=== PATIENT | female | born 1935 | race Asian ===

== ENCOUNTER 2019-06-10 08:42 | Emergency (ER) | payer OTHER ==
[2019-06-10 08:49] VITALS: BP 163/77; PULSE 86; TEMP 97.7; BMI 31.7
[2019-06-10] MEDS ORDERED: ACETAMINOPHEN 325 MG TABLET (FP) PO ONE (09:37)
[2019-06-10] MEDS ORDERED: predniSONE 20 MG TABLET (UD) PO ONE (09:38)
[2019-06-10] MEDS ORDERED: LIDOCAINE 5% TOPICAL PATCH TP ONE (09:38)
--- NOTE | 2019-06-10 09:38 | PDOC ---
History of Present Illness - General Chief Complaint: Injury Stated Complaint: SLIP AND FALL Time Seen by Provider: 06/10/19 08:59 History Source: Patient Exam Limitations: No Limitations Past History - Travel Traveled outside of the country in the last 30 days: No Close contact w/someone who was outside of country & ill: No - Past Medical History Allergies/Adverse Reactions: Allergies Allergy/AdvReac Type Severity Reaction Status Date / Time amiodarone Allergy Verified 06/10/19 08:49 Home Medications: Ambulatory Orders Carbidopa/Levodopa [Sinemet 10/100 -] 1 each PO TID 06/15/15 Dabigatran Etexilate Mesylate [Pradaxa -] 150 mg PO BID 06/15/15 Digoxin [Lanoxin -] 0.25 mg PO DAILY 06/15/15 Lisinopril 10 mg PO DAILY 06/15/15 Metoprolol Tartrate [Lopressor -] 50 mg PO BID 06/15/15 Tramadol HCl 50 mg PO BID #6 tablet MDD 2 03/12/18 Tramadol HCl 50 mg PO BID #7 tablet MDD 100mg 03/12/18 Acetaminophen [Tylenol] 650 mg PO Q4H #45 tablet 06/10/19 traMADol HCL [Ultram -] 50 mg PO BID #10 tablet MDD 2 06/10/19 Anemia: No Asthma: No Cancer: Yes (R BREAST) Cardiac Disorders: Yes (A FIB) CVA: No COPD: No CHF: No Dementia: No Diabetes: No GI Disorders: No Disorders: No HTN: Yes Hypercholesterolemia: No Liver Disease: No Seizures: No Thyroid Disease: Yes (NODULE) - Surgical History Abdominal Surgery: No Appendectomy: No Cardiac Surgery: No Cholecystectomy: No Lung Surgery: No Neurologic Surgery: No Orthopedic Surgery: No - Psycho Social/Smoking Cessation Hx Smoking History: Never smoked Have you smoked in the past 12 months: No Hx Alcohol Use: No Drug/Substance Use Hx: No Substance Use Type: None Hx Substance Use Treatment: No Review of Systems - Review of Systems Able to Perform ROS?: Yes Comments:: 06/10/19 10:16 CONSTITUTIONAL: Absent: fever, chills, diaphoresis, generalized weakness, malaise, loss of appetite HEENT: Absent: rhinorrhea, nasal congestion, throat pain, throat swelling, difficulty swallowing, mouth swelling, ear pain, eye pain, visual Changes CARDIOVASCULAR: Absent: chest pain, loss of consciousness, palpitations, irregular heart rate, peripheral edema MUSCULOSKELETAL: Present: Low back pain absent: myalgia, arthralgia, joint swelling SKIN: Absent: rash, itching, pallor NEUROLOGIC: Absent: headache, focal weakness or paresthesias, dizziness, unsteady gait, seizure, mental status changes, bladder or bowel incontinence PSYCHIATRIC: Absent: anxiety, depression, suicidal or homicidal ideation, hallucinations. Is the patient limited Maldivian proficient: No *Physical Exam - Vital Signs Last Vital Signs Temp Pulse Resp BP Pulse Ox 97.7 F 86 83 H 163/77 96 06/10/19 08:45 06/10/19 08:45 06/10/19 08:45 06/10/19 08:45 06/10/19 08:45 - Physical Exam 06/10/19 10:17 GENERAL: Well developed, well nourished. Awake and alert. No acute distress. HEENT: Normocephalic, atraumatic. PERRLA, EOMI. No conjunctival pallor. Sclera are non- icteric. Moist mucous membranes. Oropharynx is clear. NECK: Supple. Full ROM. No JVD. Carotid pulses 2+ and symmetric, without bruits. No thyromegaly. No lymphadenopathy. MUSCULOSKELETAL Midline tenderness to the coccyx, S1 region. Associated paraspinal tenderness bilaterally L3-S1. Normal range of motion. No CVA tenderness. EXTREMITIES: No cyanosis. No clubbing. No edema. No calf tenderness. SKIN: Warm and dry. Normal capillary refill. No rashes. No jaundice. NEUROLOGICAL: Alert, awake, appropriate. Cranial nerves 2-12 intact. No deficits to light touch and temperature in face, upper extremities and lower extremities. No motor deficits in the in face, upper extremities and lower extremities. Normoreflexic in the upper and lower extremities. Normal speech. Toes are down- going bilaterally. Gait is normal without ataxia. PSYCHIATRIC: Cooperative. Good eye contact. Appropriate mood and affect. Medical Decision Making - Medical Decision Making 06/10/19 10:18 The patient is an 83-year-old female, past medical history of A. fib, on Pradaxa , HTN, breast CA, presents the ER today with low back pain. She states that she fell on an escalator on 06/01/2019. She states that she landed on her butt and now she has a lot of pain in her Coccyx. She states it hurts to sit. She feels better when she lays flat. She did not hit her head or lose consciousness when she fell. Denies dizziness, lightheadedness, weakness to the extremities, saddle anesthesia, bladder or bowel incontinence and headache. A/P: Low back pain On exam patient with midline tenderness over the coccyx. Patient also with bilateral paraspinous muscle tenderness L3-S1. Strength is intact of the lower extremities 5 out of 5 bilaterally. No sensory deficits. Reflexes intact 2+ at the patella. No bruising noted. No CVA tenderness. Gait stable; pt ambulatory in the ED X-ray reveals a fracture of the coccyx. We will treat with tramadol, Tylenol and have the patient follow-up with orthopedics. A referral has been provided. Will discharge home with return precautions and orthopedic follow-up. I discussed the physical exam findings, ancillary test results and final diagnoses with the patient. I answered all of the patient's questions. The patient was satisfied with the care received and felt comfortable with the discharge plan and treatment plan. The Patient agrees to follow up with the primary care physician/specialist within 24-72 hours. Return precautions were given. Discharge - Discharge Information Problems reviewed: Yes Clinical Impression/Diagnosis: Fracture of coccyx Qualifiers: Encounter type: initial encounter Fracture type: closed Qualified Code(s): S32.2XXA - Fracture of coccyx, initial encounter for closed fracture Condition: Stable Disposition: HOME - Admission No - Additional Discharge Information Prescriptions: Acetaminophen [Tylenol] 650 mg PO Q4H #45 tablet traMADol HCL [Ultram -] 50 mg PO BID #10 tablet MDD 2 - Follow up/Referral Referrals: Misbah Bledsoe DO [Staff Physician] - - Patient Discharge Instructions Patient Printed Discharge Instructions: DI for Coccyx Fracture Additional Instructions: You broke your tailbone. Please take Tylenol 650 mg every 6 hours for pain. You may take tramadol as needed for breakthrough pain. Do not drink alcohol or drive after taking this medication as it may make you drowsy. Please buy a doughnut pillow at the pharmacy to sit on to help relieve your pain. Please follow-up with orthopedics this week. A referral has been provided to you. Please follow-up with your primary care doctor as well. Return to the ER for worsening pain, loss of bladder or bowel function, numbness and tingling to the area or if you have any changes in your symptoms. - Post Discharge Activity
[2019-06-10] MEDS ORDERED: LIDOCAINE 5% TOPICAL PATCH ONE (09:41)
[2019-06-10] MEDS ORDERED: ACETAMINOPHEN 325 MG TABLET (FP) ONE (09:41)
[2019-06-10] MEDS ORDERED: predniSONE 20 MG TABLET (UD) ONE (09:41)
== END 2019-06-10 10:20 | disposition home or self-care (01) ==
LOC: JERFT 08:42
DX: S32.2XXA Fracture of coccyx, initial encounter for closed fracture (principal); W10.0XXA Fall (on)(from) escalator, initial encounter; Y93.89 Activity, other specified; Y92.29 Other specified public building as the place of occurrence of the external cause; Y99.8 Other external cause status; I10 Essential (primary) hypertension; I48.91 Unspecified atrial fibrillation; Z79.02 Long term (current) use of antithrombotics/antiplatelets; Z85.3 Personal history of malignant neoplasm of breast; E04.1 Nontoxic single thyroid nodule; Z88.8 Allergy status to other drugs, medicaments and biological substances
CPT/HCPCS: 72100-TC-FY; 99282-25

== ENCOUNTER 2021-05-19 13:00 | Observation (INO) | payer OTHER ==
[2021-05-19 14:12] LABS: BASO % 0.5 % (0-2.0); EOS % 1.6 % (0-4.5); HEMATOCRIT 42.5 % (32.4-45.2); HEMOGLOBIN 14.3 GM/dL (10.7-15.3); LYMPH % 21.6 % (8-40); MCH 31.9 pg (25.7-33.7); MCHC 33.7 g/dl (32.0-36.0); MEAN CELL VOLUME 94.8 fl (80-96); MEAN PLT VOLUME 8.5 fl (7.5-11.1); MONO % 7.7 % (3.8-10.2); NEUT % 68.6 % (42.8-82.8); PLATELET COUNT 177 10^3/uL (134-434); RBC 4.48 M/mm3 (3.60-5.2); RDW 13.6 % (11.6-15.6); WHITE BLOOD COUNT 7.4 K/mm3 (4.0-10.0)
[2021-05-19 14:20] LABS: INR 1.53 (0.83-1.09); PROTHROMBIN TIME (PATIENT) 17.2 SEC (9.7-13.0)
[2021-05-19 14:23] LABS: ACTIVATED PTT 32.4 SECONDS (25.2-36.5)
[2021-05-19 14:33] LABS: EPI CELLS 19 /uL (0-25.1); HYALINE CASTS 16 /uL (0-3.1); PH,URINE 5.5 (5.0-8.0); URINE APPEARANCE Error; URINE BACTERIA 8 /uL (0-1359); URINE BILIRUBIN 1+ (NEGATIVE); URINE COLOR DK YELLOW; URINE GLUCOSE (UA) NEGATIVE (NEGATIVE); URINE KETONE TRACE (NEGATIVE); URINE LEUK ESTERASE NEGATIVE (NEGATIVE); URINE NITRITE NEGATIVE (NEGATIVE); URINE PROTEIN 1+ (NEGATIVE); URINE RBC 16 /uL (0-23.9); URINE WBC 9 /uL (0-25.8)
[2021-05-19 14:40] LABS: CHLORIDE 96 mmol/L (98-107); SODIUM 133 mmol/L (136-145)
[2021-05-19 14:41] LABS: CALCIUM 8.6 mg/dL (8.5-10.1)
[2021-05-19 14:42] LABS: ALBUMIN 3.4 g/dl (3.4-5.0); ANION GAP 10 MMOL/L (8-16); CO2 26 mmol/L (21-32); GLUCOSE,RANDOM 104 mg/dL (74-106); MAGNESIUM 2.3 mg/dL (1.8-2.4)
[2021-05-19 14:45] LABS: SGOT/AST 35 U/L (15-37); SGPT/ALT 11 U/L (13-61)
[2021-05-19 14:47] LABS: BILIRUBIN,TOTAL 1.1 mg/dL (0.2-1); TOT PROT 7.2 g/dl (6.4-8.2)
[2021-05-19 14:48] LABS: ALK PHOS 84 U/L (45-117)
[2021-05-19 15:14] LABS: LACTIC ACID 2.1 mmol/L (0.4-2.0)
[2021-05-19] MEDS ORDERED: LACTATED RINGERS SOLUTION 1,000 ML/1,000 ML INFUS.BAG IV SCH ×2 (15:30)
[2021-05-19] MEDS ORDERED: METOPROLOL TARTRATE 50 MG TABLET (FP) ONE (22:54)
[2021-05-19] MEDS: METOPROLOL TARTRATE 50 MG TABLET (FP) PO SCH (22:56)
[2021-05-20] MEDS: CARBIDOPA/LEVODOPA 10/100 TABLET (FP) PO SCH ×4 (00:42→22:39)
[2021-05-20 07:53] LABS: BASO % 0.7 % (0-2.0); HEMATOCRIT 40.3 % (32.4-45.2); HEMOGLOBIN 13.6 GM/dL (10.7-15.3); LYMPH % 27.1 % (8-40); MCH 31.6 pg (25.7-33.7); MCHC 33.7 g/dl (32.0-36.0); MEAN CELL VOLUME 93.7 fl (80-96); MEAN PLT VOLUME 8.4 fl (7.5-11.1); MONO % 9.6 % (3.8-10.2); NEUT % 59.6 % (42.8-82.8); PLATELET COUNT 170 10^3/uL (134-434); RDW 13.9 % (11.6-15.6); WHITE BLOOD COUNT 8.5 K/mm3 (4.0-10.0)
[2021-05-20 08:15] LABS: CALCIUM 9.1 mg/dL (8.5-10.1)
[2021-05-20 08:16] LABS: ALBUMIN 3.4 g/dl (3.4-5.0); BLOOD UREA NITROGEN 19.5 mg/dL (7-18); MAGNESIUM 2.3 mg/dL (1.8-2.4)
[2021-05-20 08:17] LABS: PHOSPHOROUS 3.6 mg/dL (2.5-4.9)
[2021-05-20 08:19] LABS: BILIRUBIN,TOTAL 0.6 mg/dL (0.2-1); CREATININE 0.8 mg/dL (0.55-1.3); TOT PROT 6.9 g/dl (6.4-8.2)
[2021-05-20] MEDS ORDERED: DIGOXIN 0.125 MG TABLET ONE (09:39)
[2021-05-20] MEDS ORDERED: METOPROLOL TARTRATE 50 MG TABLET (FP) ONE ×2 (09:39→21:27)
[2021-05-20] MEDS: LISINOPRIL 10 MG TABLET PO SCH (11:10)
[2021-05-20] MEDS: METOPROLOL TARTRATE 50 MG TABLET (FP) PO SCH ×2 (11:10→22:39)
[2021-05-20] MEDS: DIGOXIN 0.125 MG TABLET PO SCH (11:10)
[2021-05-20] MEDS ORDERED: ATORVASTATIN CA 10 MG TABLET (FP) ONE (14:46)
[2021-05-20] MEDS ORDERED: LEVOTHYROXINE NA 25 MCG TABLET (FP) ONE (14:46)
[2021-05-20] MEDS: LEVOTHYROXINE NA 50 MCG TABLET (FP) PO SCH (14:53)
[2021-05-20] MEDS: ATORVASTATIN CA 10 MG TABLET (FP) PO SCH (14:53)
[2021-05-20] MEDS ORDERED: PT OWN MED DRAWER 7, Y5N ONE (18:44)
[2021-05-20] MEDS ORDERED: APIXABAN 5 MG TABLET ONE (21:27)
[2021-05-20] MEDS: MOMETASONE FUROATE 220 MCG/IH INHALER IH SCH (22:38)
[2021-05-20] MEDS: APIXABAN 5 MG TABLET PO SCH (22:39)
[2021-05-21 00:38] VITALS: BMI 30.7
[2021-05-21] MEDS: CARBIDOPA/LEVODOPA 10/100 TABLET (FP) PO SCH ×3 (06:43→21:46)
[2021-05-21] MEDS: LEVOTHYROXINE NA 50 MCG TABLET (FP) PO SCH (06:43)
[2021-05-21] MEDS: APIXABAN 5 MG TABLET PO SCH ×2 (09:30→21:45)
[2021-05-21] MEDS: DIGOXIN 0.125 MG TABLET PO SCH (09:31)
[2021-05-21] MEDS: METOPROLOL TARTRATE 50 MG TABLET (FP) PO SCH ×2 (09:31→21:45)
[2021-05-21] MEDS: ATORVASTATIN CA 10 MG TABLET (FP) PO SCH (09:31)
[2021-05-21] MEDS: LISINOPRIL 10 MG TABLET PO SCH (09:31)
[2021-05-21] MEDS ORDERED: FLU VACC QS2021-22(6MOS UP)/PF 60 MCG/0.5 ML SYRINGE IM ONE (10:00)
[2021-05-21] MEDS ORDERED: PT OWN MED DRAWER 7, Y5N ONE ×2 (13:53→21:51)
[2021-05-21] MEDS: MOMETASONE FUROATE 220 MCG/IH INHALER IH SCH (21:45)
[2021-05-21] MEDS ORDERED: FAMOTIDINE 20 MG TABLET PO ONE (21:49)
[2021-05-22] MEDS: LEVOTHYROXINE NA 50 MCG TABLET (FP) PO SCH (06:24)
[2021-05-22] MEDS: CARBIDOPA/LEVODOPA 10/100 TABLET (FP) PO SCH ×2 (06:24→14:25)
[2021-05-22 07:32] LABS: HEMATOCRIT 41.5 % (32.4-45.2); HEMOGLOBIN 14.1 GM/dL (10.7-15.3); MCH 32.1 pg (25.7-33.7); MCHC 34.1 g/dl (32.0-36.0); MEAN CELL VOLUME 94.2 fl (80-96); MEAN PLT VOLUME 8.4 fl (7.5-11.1); PLATELET COUNT 167 10^3/uL (134-434); RBC 4.41 M/mm3 (3.60-5.2); RDW 13.8 % (11.6-15.6); WHITE BLOOD COUNT 7.3 K/mm3 (4.0-10.0)
[2021-05-22 07:56] LABS: BLOOD UREA NITROGEN 15.2 mg/dL (7-18); MAGNESIUM 1.9 mg/dL (1.8-2.4)
[2021-05-22 07:57] LABS: CALCIUM 8.6 mg/dL (8.5-10.1)
[2021-05-22 07:59] LABS: CREATININE 0.7 mg/dL (0.55-1.3); PHOSPHOROUS 3.4 mg/dL (2.5-4.9)
[2021-05-22 09:28] VITALS: PULSE 87
[2021-05-22] MEDS: DIGOXIN 0.125 MG TABLET PO SCH (09:28)
[2021-05-22] MEDS: METOPROLOL TARTRATE 50 MG TABLET (FP) PO SCH (09:28)
[2021-05-22] MEDS: LISINOPRIL 10 MG TABLET PO SCH (09:28)
[2021-05-22] MEDS: APIXABAN 5 MG TABLET PO SCH (09:28)
[2021-05-22] MEDS: ATORVASTATIN CA 10 MG TABLET (FP) PO SCH (09:28)
[2021-05-22 11:21] VITALS: BP 136/70; TEMP 98.4
== END 2021-05-22 18:00 | disposition home or self-care (01) ==
LOC: JER 13:00 → JERBED 13:40 → UNDOADMOB 13:40 → OBSVTOIN 18:10 → INTOOBSV 18:10 → JERBED 05-20 16:36 → J4W 05-20 23:39
PROVIDERS: ADMIT Internal Medicine; ATTEND Internal Medicine
PROC: 3E0234Z Introduction of Serum, Toxoid and Vaccine into Muscle, Percutaneous Approach (ICD-10-PCS; principal; 2021-05-20)
PROC: 3E0337Z Introduction of Electrolytic and Water Balance Substance into Peripheral Vein, Percutaneous Approach (ICD-10-PCS; 2021-05-20)
DX: R55 Syncope and collapse (principal); I48.91 Unspecified atrial fibrillation; F03.90 Unspecified dementia, unspecified severity, without behavioral disturbance, psychotic disturbance, mood disturbance, and anxiety; E66.8 Other obesity; Z68.30 Body mass index [BMI] 30.0-30.9, adult; E87.1 Hypo-osmolality and hyponatremia; I10 Essential (primary) hypertension; Z85.3 Personal history of malignant neoplasm of breast; Z88.8 Allergy status to other drugs, medicaments and biological substances
CPT/HCPCS: 36415; 70450-TC; 71045-TC-FY; 72125-TC; 80048; 80053; 80162; 81003; 82550; 82962; 83605; 83735; 84100; 84484; 85025; 85027; 85610; 85730; 87086; 90686; 93005; 93010; 93306-TC; 96360; 96372; 97116-GP; 97162-GP; 99285-25; C9803; G0378; U0003; U0005

== ENCOUNTER 2021-05-27 00:17 | Observation (INO) | payer OTHER ==
[2021-05-27 00:32] VITALS: BMI 26.5
[2021-05-27 03:27] LABS: BASO % 0.6 % (0-2.0); HEMOGLOBIN 13.9 GM/dL (10.7-15.3); LYMPH % 27.1 % (8-40); MCH 31.5 pg (25.7-33.7); MCHC 33.9 g/dl (32.0-36.0); MEAN CELL VOLUME 92.9 fl (80-96); MEAN PLT VOLUME 7.9 fl (7.5-11.1); MONO % 8.5 % (3.8-10.2); NEUT % 60.8 % (42.8-82.8); PLATELET COUNT 169 10^3/uL (134-434); RBC 4.41 M/mm3 (3.60-5.2); RDW 13.3 % (11.6-15.6); WHITE BLOOD COUNT 8.9 K/mm3 (4.0-10.0)
[2021-05-27 03:45] LABS: CHLORIDE 93 mmol/L (98-107)
[2021-05-27 03:47] LABS: CALCIUM 8.8 mg/dL (8.5-10.1)
[2021-05-27 03:48] LABS: ALBUMIN 3.8 g/dl (3.4-5.0); BLOOD UREA NITROGEN 16.4 mg/dL (7-18); CO2 27 mmol/L (21-32); GLUCOSE,RANDOM 106 mg/dL (74-106)
[2021-05-27 03:51] LABS: CREATININE 0.6 mg/dL (0.55-1.3); SGOT/AST 25 U/L (15-37); SGPT/ALT 19 U/L (13-61)
[2021-05-27 03:52] LABS: BILIRUBIN,TOTAL 0.7 mg/dL (0.2-1)
[2021-05-27 03:53] LABS: TOT PROT 7.4 g/dl (6.4-8.2)
[2021-05-27 03:54] LABS: ALK PHOS 103 U/L (45-117)
[2021-05-27 03:57] LABS: ANION GAP 10 MMOL/L (8-16); SODIUM 129 mmol/L (136-145)
[2021-05-27] MEDS ORDERED: SODIUM CHLORIDE 1,000 ML IV SCH (04:00)
[2021-05-27] MEDS ORDERED: APIXABAN 5 MG TABLET ONE (08:45)
[2021-05-27] MEDS ORDERED: DIGOXIN 0.25 MG TABLET ONE (08:45)
[2021-05-27] MEDS ORDERED: LISINOPRIL 5 MG TABLET ONE (08:46)
[2021-05-27] MEDS ORDERED: METOPROLOL TARTRATE 50 MG TABLET (FP) ONE (08:46)
[2021-05-27] MEDS ORDERED: LEVOTHYROXINE NA 25 MCG TABLET (FP) ONE (08:46)
[2021-05-27] MEDS ORDERED: LISINOPRIL 10 MG TABLET PO SCH (10:00)
[2021-05-27] MEDS ORDERED: APIXABAN 5 MG TABLET PO SCH (10:00)
[2021-05-27] MEDS ORDERED: ATORVASTATIN CA 10 MG TABLET (FP) PO SCH (10:00)
[2021-05-27] MEDS ORDERED: DIGOXIN 0.25 MG TABLET PO SCH (10:00)
[2021-05-27] MEDS ORDERED: METOPROLOL TARTRATE 50 MG TABLET (FP) PO SCH (10:00)
[2021-05-27] MEDS ORDERED: LEVOTHYROXINE NA 50 MCG TABLET (FP) PO SCH (10:00)
[2021-05-27 11:36] LABS: CALCIUM 9.5 mg/dL (8.5-10.1)
[2021-05-27 11:37] LABS: BLOOD UREA NITROGEN 14.5 mg/dL (7-18)
[2021-05-27 11:40] LABS: CREATININE 0.7 mg/dL (0.55-1.3)
[2021-05-27] MEDS ORDERED: FAMOTIDINE 20 MG TABLET PO ONE (13:30)
[2021-05-27] MEDS ORDERED: FAMOTIDINE 20 MG TABLET ONE (13:38)
[2021-05-27] MEDS ORDERED: CARBIDOPA/LEVODOPA 10/100 TABLET (FP) PO SCH (14:00)
[2021-05-27 15:22] VITALS: BP 125/74; PULSE 66; TEMP 98.9
[2021-05-28] MEDS ORDERED: LEVOTHYROXINE NA 50 MCG TABLET (FP) PO SCH (07:15)
== END 2021-05-27 17:30 | disposition home or self-care (01) ==
LOC: JER 00:17 → JERBED 03:40
PROVIDERS: ADMIT Internal Medicine; ATTEND Internal Medicine
DX: E87.1 Hypo-osmolality and hyponatremia (principal); R07.89 Other chest pain; I10 Essential (primary) hypertension; I48.21 Permanent atrial fibrillation; J45.909 Unspecified asthma, uncomplicated; F03.90 Unspecified dementia, unspecified severity, without behavioral disturbance, psychotic disturbance, mood disturbance, and anxiety; Z79.01 Long term (current) use of anticoagulants; Z88.8 Allergy status to other drugs, medicaments and biological substances; Z85.3 Personal history of malignant neoplasm of breast; Z90.11 Acquired absence of right breast and nipple
CPT/HCPCS: 36415; 71045-TC-FY; 80048; 80053; 80162; 82550; 83930; 83935; 84443; 84484; 85025; 93005; 93010; 99285-25; C9803; G0378; U0003; U0005

== ENCOUNTER 2021-12-29 11:41 | Observation (INO) | payer OTHER ==
[2021-12-29] MEDS ORDERED: ACETAMINOPHEN 1000 MG/100 ML BAG IVPB ONE ×2 (13:51→14:04)
[2021-12-29] MEDS ORDERED: ACETAMINOPHEN INJECTION 100 ML IVPB ONE (14:12)
[2021-12-29 14:22] LABS: BASO % 0.7 % (0-2.0); EOS % 1.9 % (0-4.5); HEMATOCRIT 43.1 % (32.4-45.2); HEMOGLOBIN 14.4 GM/dL (10.7-15.3); LYMPH % 21.6 % (8-40); MCH 30.8 pg (25.7-33.7); MCHC 33.4 g/dl (32.0-36.0); MEAN CELL VOLUME 92.2 fl (80-96); MEAN PLT VOLUME 7.5 fl (7.5-11.1); MONO % 8.1 % (3.8-10.2); NEUT % 67.7 % (42.8-82.8); PLATELET COUNT 228 10^3/uL (134-434); RBC 4.67 M/mm3 (3.60-5.2); RDW 13.7 % (11.6-15.6); WHITE BLOOD COUNT 8.1 K/mm3 (4.0-10.0)
[2021-12-29 14:26] LABS: URINE APPEARANCE CLEAR; URINE BILIRUBIN NEGATIVE (NEGATIVE); URINE COLOR YELLOW; URINE GLUCOSE (UA) NEGATIVE (NEGATIVE); URINE KETONE NEGATIVE (NEGATIVE); URINE LEUK ESTERASE NEGATIVE (NEGATIVE); URINE NITRITE NEGATIVE (NEGATIVE); URINE PROTEIN NEGATIVE (NEGATIVE); URINE UROBILINOGEN 0.2 mg/dL (0.2-1.0)
[2021-12-29 14:44] LABS: INR 1.31 (0.83-1.09); PROTHROMBIN TIME (PATIENT) 15.1 SEC (9.7-13.0)
[2021-12-29 14:45] LABS: ALBUMIN 3.9 g/dl (3.4-5.0); BLOOD UREA NITROGEN 13.9 mg/dL (7-18); CALCIUM 9.4 mg/dL (8.5-10.1)
[2021-12-29 14:48] LABS: CREATININE 0.9 mg/dL (0.55-1.3)
[2021-12-29 14:50] LABS: BILIRUBIN,TOTAL 0.7 mg/dL (0.2-1); TOT PROT 8.6 g/dl (6.4-8.2)
[2021-12-29 22:34] VITALS: BMI 28.1
[2021-12-29] MEDS ORDERED: ACETAMINOPHEN 325 MG TABLET (FP) PO PRN (23:02)
[2021-12-29] MEDS ORDERED: ALBUTEROL SO4 HFA INHALER IH PRN (23:17)
[2021-12-30] MEDS: MOMETASONE FUROATE 110 MCG/IH INHALER IH SCH ×3 (06:20→22:28)
[2021-12-30] MEDS: INSULIN SLIDING SCALE (NOVOLOG) 1 VIAL SQ SCH ×4 (06:24→22:27)
[2021-12-30] MEDS: METOPROLOL TARTRATE 50 MG TABLET (FP) PO SCH ×3 (06:28→21:54)
[2021-12-30] MEDS: LEVOTHYROXINE NA 50 MCG TABLET (FP) PO SCH (06:28)
[2021-12-30] MEDS: CARBIDOPA/LEVODOPA 10/100 TABLET (FP) PO SCH ×3 (07:20→21:55)
[2021-12-30 07:29] LABS: BASO % 0.5 % (0-2.0); HEMATOCRIT 41.3 % (32.4-45.2); HEMOGLOBIN 13.6 GM/dL (10.7-15.3); LYMPH % 27.6 % (8-40); MCH 30.6 pg (25.7-33.7); MCHC 32.9 g/dl (32.0-36.0); MEAN CELL VOLUME 93.1 fl (80-96); MEAN PLT VOLUME 8.4 fl (7.5-11.1); MONO % 9.4 % (3.8-10.2); NEUT % 59.5 % (42.8-82.8); PLATELET COUNT 222 10^3/uL (134-434); RBC 4.44 M/mm3 (3.60-5.2); RDW 13.6 % (11.6-15.6); WHITE BLOOD COUNT 7.6 K/mm3 (4.0-10.0)
[2021-12-30 07:58] LABS: ALBUMIN 3.4 g/dl (3.4-5.0); CALCIUM 8.7 mg/dL (8.5-10.1)
[2021-12-30 07:59] LABS: BLOOD UREA NITROGEN 14.3 mg/dL (7-18)
[2021-12-30 08:02] LABS: CREATININE 0.7 mg/dL (0.55-1.3)
[2021-12-30 08:04] LABS: BILIRUBIN,TOTAL 1.1 mg/dL (0.2-1)
[2021-12-30] MEDS: DIGOXIN 0.125 MG TABLET PO SCH (11:05)
[2021-12-30] MEDS: LISINOPRIL 10 MG TABLET PO SCH (11:05)
[2021-12-30] MEDS: APIXABAN 5 MG TABLET PO SCH ×2 (11:05→21:52)
[2021-12-30] MEDS: ATORVASTATIN CA 10 MG TABLET (FP) PO SCH (21:54)
[2021-12-31] MEDS: INSULIN SLIDING SCALE (NOVOLOG) 1 VIAL SQ SCH ×4 (06:19→21:45)
[2021-12-31] MEDS: CARBIDOPA/LEVODOPA 10/100 TABLET (FP) PO SCH ×3 (06:19→21:30)
[2021-12-31] MEDS: LEVOTHYROXINE NA 50 MCG TABLET (FP) PO SCH (06:24)
[2021-12-31] MEDS: DIGOXIN 0.125 MG TABLET PO SCH (09:31)
[2021-12-31] MEDS: APIXABAN 5 MG TABLET PO SCH ×2 (09:31→21:38)
[2021-12-31] MEDS: METOPROLOL TARTRATE 50 MG TABLET (FP) PO SCH ×2 (09:32→21:31)
[2021-12-31] MEDS: LISINOPRIL 10 MG TABLET PO SCH (09:32)
[2021-12-31] MEDS: MOMETASONE FUROATE 110 MCG/IH INHALER IH SCH ×2 (09:33→21:32)
[2021-12-31] MEDS ORDERED: KETOROLAC TROMETHAMINE 30 MG/1 ML VIAL IVPUSH ONE (17:02)
[2021-12-31] MEDS: ATORVASTATIN CA 10 MG TABLET (FP) PO SCH (21:31)
[2021-12-31] MEDS: GABAPENTIN 100 MG CAPSULE PO SCH (21:38)
[2022-01-01] MEDS: CARBIDOPA/LEVODOPA 10/100 TABLET (FP) PO SCH ×2 (06:36→13:34)
[2022-01-01] MEDS: INSULIN SLIDING SCALE (NOVOLOG) 1 VIAL SQ SCH ×2 (06:36→11:40)
[2022-01-01] MEDS: LEVOTHYROXINE NA 50 MCG TABLET (FP) PO SCH (06:36)
[2022-01-01] MEDS: APIXABAN 5 MG TABLET PO SCH (09:30)
[2022-01-01] MEDS: MOMETASONE FUROATE 110 MCG/IH INHALER IH SCH (09:30)
[2022-01-01] MEDS: DIGOXIN 0.125 MG TABLET PO SCH (09:30)
[2022-01-01] MEDS: LISINOPRIL 10 MG TABLET PO SCH (09:31)
[2022-01-01] MEDS: GABAPENTIN 100 MG CAPSULE PO SCH (09:31)
[2022-01-01] MEDS: METOPROLOL TARTRATE 50 MG TABLET (FP) PO SCH (09:31)
[2022-01-01 15:29] VITALS: PULSE 91; RESP 22; TEMP 98.2
[2022-01-01 15:33] VITALS: BP 152/81
== END 2022-01-01 17:47 | disposition home or self-care (01) ==
LOC: JER 11:41 → JERBED 16:18 → OBSVTOIN 16:18 → UNDOADMOB 16:18 → INTOOBSV 16:18 → J4W 20:37 → JERBED 20:37 → J4W 12-30 11:04
PROVIDERS: ADMIT Internal Medicine; ATTEND Internal Medicine
PROC: 3E033NZ Introduction of Analgesics, Hypnotics, Sedatives into Peripheral Vein, Percutaneous Approach (ICD-10-PCS; principal; 2021-12-30)
PROC: 3E0333Z Introduction of Anti-inflammatory into Peripheral Vein, Percutaneous Approach (ICD-10-PCS; 2021-12-30)
DX: I48.91 Unspecified atrial fibrillation (principal); R55 Syncope and collapse; R51.9 Headache, unspecified; M25.552 Pain in left hip; M54.2 Cervicalgia; I10 Essential (primary) hypertension; K21.9 Gastro-esophageal reflux disease without esophagitis; J45.909 Unspecified asthma, uncomplicated; Z85.3 Personal history of malignant neoplasm of breast; S10.93XA Contusion of unspecified part of neck, initial encounter; W00.0XXA Fall on same level due to ice and snow, initial encounter; Y93.89 Activity, other specified; Y92.89 Other specified places as the place of occurrence of the external cause; Z29.8 Encounter for other specified prophylactic measures; Z88.8 Allergy status to other drugs, medicaments and biological substances
CPT/HCPCS: 36415; 70450-TC; 70551-TC; 71045-TC-FY; 72125-TC; 72170-TC-FY; 73030-TC-LT-FY; 73502-TC-LT-FY; 80053; 80162; 81003; 82962; 83036; 83880; 84484; 85025; 85610; 85730; 87086; 93005; 93010; 93306-TC; 93880-TC; 93971-TC; 96374; 96375; 97116-GP; 97161-GP; 99285-25; C9803-CS; G0378; U0003; U0005

== ENCOUNTER 2022-02-02 04:15 | Day surgery (SDC) | payer OTHER ==
[2022-02-01 15:10] VITALS: BMI 28.7
[~2022-02-02 04:15] MED LIST: ACETAMINOPHEN 325 MG TABLET (FP) PO PRN; CYCLOPENTOLATE HCL 1% OPHTH SOLN 2 ML BOTTLE OP SCH; KETOROLAC TROMETHAMINE 0.5% EYE DROP 1 DROP DROPS OP SCH; OFLOXACIN 0.3% OPHTHALMIC SOLUTION 5 ML BOTTLE OP SCH; PHENYLEPHRINE 2.5% OPHTH SOLN 15 ML BOTTLE OP SCH; TROPICAMIDE 1% OPHTH SOLN 15 ML BOTTLE OP SCH
[2022-02-02] MEDS ORDERED: KETOROLAC TROMETHAMINE 0.5% EYE DROP 1 DROP DROPS ONE (07:01)
[2022-02-02] MEDS ORDERED: CYCLOPENTOLATE HCL 1% OPHTH SOLN 2 ML BOTTLE ONE (07:01)
[2022-02-02] MEDS ORDERED: OFLOXACIN 0.3% OPHTHALMIC SOLUTION 5 ML BOTTLE ONE (07:01)
[2022-02-02] MEDS ORDERED: TROPICAMIDE 1% OPHTH SOLN 15 ML BOTTLE ONE (07:01)
[2022-02-02] MEDS ORDERED: PHENYLEPHRINE 2.5% OPTHALMIC DROP BOTTLE ONE (07:01)
[2022-02-02] MEDS ORDERED: CYCLOPENTOLATE HCL 1% OPHTH SOLN 2 ML BOTTLE OD ONE ×3 (07:10→07:20)
[2022-02-02] MEDS ORDERED: TROPICAMIDE 1% OPHTH SOLN 15 ML BOTTLE OD ONE ×3 (07:10→07:20)
[2022-02-02] MEDS ORDERED: PHENYLEPHRINE 2.5% OPHTH SOLN 15 ML BOTTLE OD ONE ×3 (07:10→07:20)
[2022-02-02] MEDS ORDERED: KETOROLAC TROMETHAMINE 0.5% EYE DROP 1 DROP DROPS OD ONE ×3 (07:10→07:20)
[2022-02-02] MEDS ORDERED: OFLOXACIN 0.3% OPHTHALMIC SOLUTION 5 ML BOTTLE OD ONE ×3 (07:10→07:20)
[2022-02-02] MEDS ORDERED: TETRACAINE 0.5% OPHTH SOLN 2 ML BOTTLE ONE (07:14)
[2022-02-02] MEDS ORDERED: POVIDONE-IODINE 5% OPHTHALMIC PREP 30 ML SOLUTION ONE (07:14)
[2022-02-02] MEDS ORDERED: BSS (NA/CA/MG/K) BALANCED SALT SOLUTION OPHTH SOLN 15 ML BOTTLE ONE (07:14)
[2022-02-02] MEDS ORDERED: EPINEPHrine/PF 1 MG/1 ML (1:1,000) AMPULE ONE (07:14)
[2022-02-02] MEDS ORDERED: MIDAZOLAM HCL 2 MG/2 ML SINGLE DOSE VIAL ONE (08:55)
[2022-02-02] MEDS ORDERED: TETRACAINE 0.5% OPHTH SOLN 2 ML BOTTLE OD ONE (09:06)
[2022-02-02] MEDS ORDERED: POVIDONE-IODINE 5% OPHTHALMIC PREP 30 ML SOLUTION OD ONE (09:10)
[2022-02-02] MEDS ORDERED: BSS (NA/CA/MG/K) BALANCED SALT SOLUTION OPHTH SOLN 15 ML BOTTLE IO ONE (09:20)
[2022-02-02] MEDS ORDERED: LIDOCAINE HCL 1% PRESERVATIVE FREE - 30ML VIAL IO ONE (09:22)
[2022-02-02] MEDS ORDERED: CHONDROITIN SU A/HYALUR SOD 1 KIT IO ONE (09:23)
[2022-02-02] MEDS ORDERED: EPINEPHrine/PF 1 MG/1 ML (1:1,000) AMPULE SQ ONE (09:30)
[2022-02-02 09:59] VITALS: TEMP 98
[2022-02-02 12:12] VITALS: BP 140/60; PULSE 52; RESP 20
== END 2022-02-02 10:50 | disposition home or self-care (01) ==
LOC: JASU-SURG 04:15
PROVIDERS: ATTEND Ophthalmology
PROC: 08RJ3JZ Replacement of Right Lens with Synthetic Substitute, Percutaneous Approach (ICD-10-PCS; principal; 2022-02-02 09:21)
DX: H26.9 Unspecified cataract (principal)

== ENCOUNTER 2023-05-05 18:03 | Inpatient (IN) | payer OTHER ==
[2023-05-05] MEDS ORDERED: CEFTRIAXONE 1,000 MG in DEXTROSE 5%-WATER - 50 ML IVPB ONE (18:43)
[2023-05-05] MEDS ORDERED: CEFTRIAXONE 1 GM/50 ML BAG ONE (19:06)
[2023-05-05 19:15] LABS: VENOUS BASE EXCESS 5.7 mmol/L (-2-2); VENOUS O2 SATURATION 29.5 % (70-80); VENOUS PH 7.303 (7.310-7.410)
[2023-05-05 19:20] LABS: BASO % 0.5 % (0-2.0); HEMATOCRIT 42.9 % (32.4-45.2); HEMOGLOBIN 14.2 GM/dL (10.7-15.3); LYMPH % 24.1 % (8-40); MCHC 33.1 g/dl (32.0-36.0); MEAN CELL VOLUME 93.9 fl (80-96); MONO % 9.1 % (3.8-10.2); NEUT % 64.3 % (42.8-82.8); PLATELET COUNT 187 10^3/uL (134-434); RBC 4.57 M/mm3 (3.60-5.2); RDW 14.3 % (11.6-15.6); VENOUS PCO2 72.1 mmHg (38-52); WHITE BLOOD COUNT 6.8 K/mm3 (4.0-10.0)
[2023-05-05 19:23] LABS: EPI CELLS 5 /uL (0-25.1); HYALINE CASTS 0 /uL (0-3.1); PH,URINE 6.5 (5.0-8.0); URINE APPEARANCE TURBID; URINE BACTERIA 37 /uL (0-1359); URINE BILIRUBIN NEGATIVE (NEGATIVE); URINE COLOR YELLOW; URINE GLUCOSE (UA) NEGATIVE (NEGATIVE); URINE KETONE NEGATIVE (NEGATIVE); URINE LEUK ESTERASE 1+ (NEGATIVE); URINE NITRITE NEGATIVE (NEGATIVE); URINE PROTEIN 2+ (NEGATIVE); URINE RBC 21 /uL (0-23.9); URINE WBC 37 /uL (0-25.8)
[2023-05-05 19:26] LABS: INR 1.25 (0.83-1.09); PROTHROMBIN TIME (PATIENT) 14.5 SEC (9.7-13.0)
[2023-05-05 19:29] LABS: ACTIVATED PTT 37.6 SECONDS (25.2-36.5)
[2023-05-05 19:35] LABS: CHLORIDE 87 mmol/L (98-107); SODIUM 125 mmol/L (136-145)
[2023-05-05 19:37] LABS: CALCIUM 9.1 mg/dL (8.5-10.1)
[2023-05-05 19:38] LABS: ALBUMIN 3.6 g/dl (3.4-5.0); BLOOD UREA NITROGEN 22.5 mg/dL (7-18); CO2 35 mmol/L (21-32); GLUCOSE,RANDOM 109 mg/dL (74-106)
[2023-05-05 19:41] LABS: CREATININE 0.9 mg/dL (0.55-1.3); SGOT/AST 100 U/L (15-37)
[2023-05-05 19:43] LABS: BILIRUBIN,TOTAL 0.5 mg/dL (0.2-1); TOT PROT 8.4 g/dl (6.4-8.2)
[2023-05-05 19:44] LABS: ALK PHOS 169 U/L (45-117)
[2023-05-05 19:46] LABS: N-TERMINAL BNP 2870.2 pg/ml (5-450)
[2023-05-05 19:49] LABS: ANION GAP 2 mmol/L (4-13); POTASSIUM 7.3 mmol/L (3.5-5.1); SGPT/ALT 37 U/L (13-61)
[2023-05-05 21:36] LABS: POTASSIUM 4.2 mmol/L (3.5-5.1)
[2023-05-05 21:41] LABS: CREATININE 0.7 mg/dL (0.55-1.3)
[2023-05-05] MEDS ORDERED: SODIUM CHLORIDE 0.9% 500 ML INFUS.BAG IV ONE (23:38)
[2023-05-05] MEDS ORDERED: FUROSEMIDE 40 MG/4 ML INJECTABLE VIAL IVPUSH ONE (23:38)
[2023-05-05] MEDS ORDERED: FUROSEMIDE 40 MG/4 ML INJECTABLE VIAL ONE (23:45)
[2023-05-06] MEDS ORDERED: FUROSEMIDE 40 MG/4 ML INJECTABLE VIAL IVPUSH ONE (01:01)
[2023-05-06] MEDS ORDERED: methylPREDNISolone NA SUCC 125 MG/2 ML VIAL IVPUSH ONE (01:03)
[2023-05-06] MEDS ORDERED: methylPREDNISolone NA SUCC 125 MG/2 ML VIAL ONE (01:04)
[2023-05-06] MEDS ORDERED: LEVALBUTEROL HCL 0.63 MG/3 ML VIAL.NEB. IH ONE ×3 (01:04→03:45)
[2023-05-06] MEDS ORDERED: AZITHROMYCIN IVPB 500 MG in DEXTROSE 5%-WATER - 250 ML IVPB ONE (01:06)
[2023-05-06] MEDS ORDERED: LEVALBUTEROL HCL 0.63 MG/3 ML VIAL.NEB. IH PRN (01:09)
[2023-05-06] MEDS ORDERED: ALBUTEROL SO4 2.5/IPRATROPIUM 0.5 INH SOL 3 ML VIAL.NEB. NEB SCH (01:15)
[2023-05-06] MEDS ORDERED: FUROSEMIDE 40 MG/4 ML INJECTABLE VIAL ONE (01:21)
[2023-05-06] MEDS ORDERED: AZITHROMYCIN IVPB 500 MG/250 ML BAG IVPB ONE (01:22)
[2023-05-06 01:53] LABS: ARTERIAL BLD GAS O2 SATURATION 99.6 % (95-98); ARTERIAL BLOOD GAS BASE EXCESS 3.8 mmol/L (-2-2); ARTERIAL BLOOD GAS PO2 259.8 mmHg (80-100); ARTERIAL BLOOD GAS pH 7.382 (7.350-7.450)
[2023-05-06 02:17] LABS: POTASSIUM 3.6 mmol/L (3.5-5.1)
[2023-05-06 02:19] LABS: CALCIUM 8.1 mg/dL (8.5-10.1)
[2023-05-06 02:20] LABS: ALBUMIN 3.5 g/dl (3.4-5.0); BLOOD UREA NITROGEN 20.8 mg/dL (7-18)
[2023-05-06 02:23] LABS: CREATININE 0.7 mg/dL (0.55-1.3)
[2023-05-06 02:24] LABS: TOT PROT 7.3 g/dl (6.4-8.2)
[2023-05-06 02:25] LABS: BILIRUBIN,TOTAL 0.9 mg/dL (0.2-1)
[2023-05-06] MEDS ORDERED: METOPROLOL TARTRATE 5 MG/5 ML VIAL IVPUSH PRN (03:35)
[2023-05-06] MEDS: LEVALBUTEROL HCL 0.63 MG/3 ML VIAL.NEB. IH SCH ×5 (03:46→20:37)
[2023-05-06] MEDS: BUDESONIDE/FORMETEROL FUMARATE 80/4.5 mcg INHALER IH SCH ×3 (03:55→21:24)
[2023-05-06 04:51] LABS: ARTERIAL BLD GAS O2 SATURATION 97.7 % (95-98); ARTERIAL BLOOD GAS BASE EXCESS 5.5 mmol/L (-2-2); ARTERIAL BLOOD GAS PO2 109.6 mmHg (80-100); ARTERIAL BLOOD GAS pH 7.353 (7.350-7.450)
[2023-05-06 04:53] LABS: ALLENS TEST POSITIVE; VENT MODE S/T; VENT RATE 12
[2023-05-06 05:54] VITALS: BMI 27.1
[2023-05-06] MEDS: CARBIDOPA/LEVODOPA 25/100 TABLET (FP) PO SCH ×3 (06:49→21:24)
[2023-05-06] MEDS: GABAPENTIN 400 MG CAPSULE PO SCH ×3 (06:49→21:24)
[2023-05-06] MEDS: PANTOPRAZOLE SODIUM 40 MG VIAL IVPUSH SCH ×2 (07:41→09:30)
[2023-05-06 07:51] LABS: HEMATOCRIT 40.4 % (32.4-45.2); HEMOGLOBIN 13.3 GM/dL (10.7-15.3); MCH 31.1 pg (25.7-33.7); MCHC 32.8 g/dl (32.0-36.0); MEAN CELL VOLUME 94.6 fl (80-96); MEAN PLT VOLUME 8.6 fl (7.5-11.1); PLATELET COUNT 147 10^3/uL (134-434); RBC 4.27 M/mm3 (3.60-5.2); RDW 13.5 % (11.6-15.6); WHITE BLOOD COUNT 7.6 K/mm3 (4.0-10.0)
[2023-05-06 08:18] LABS: POTASSIUM 3.9 mmol/L (3.5-5.1)
[2023-05-06 08:21] LABS: ALBUMIN 3.4 g/dl (3.4-5.0); CALCIUM 8.7 mg/dL (8.5-10.1); MAGNESIUM 2.1 mg/dL (1.8-2.4)
[2023-05-06 08:22] LABS: BLOOD UREA NITROGEN 18.2 mg/dL (7-18)
[2023-05-06 08:24] LABS: CREATININE 0.7 mg/dL (0.55-1.3)
[2023-05-06 08:25] LABS: PHOSPHOROUS 3.6 mg/dL (2.5-4.9)
[2023-05-06 08:26] LABS: BILIRUBIN,TOTAL 1.1 mg/dL (0.2-1); TOT PROT 7.2 g/dl (6.4-8.2)
[2023-05-06] MEDS: methylPREDNISolone NA SUCC 40 MG/1 ML VIAL IVPB SCH (09:30)
[2023-05-06] MEDS: APIXABAN 5 MG TABLET PO SCH ×2 (09:30→21:24)
[2023-05-06] MEDS ORDERED: FUROSEMIDE 40 MG/4 ML INJECTABLE VIAL IVPUSH SCH (10:00)
[2023-05-06] MEDS ORDERED: PANTOPRAZOLE 40 MG TABLET PO SCH (10:00)
[2023-05-06] MEDS ORDERED: KCL 10 MEQ IVPB 10 MEQ/100 ML INFUS.BAG IVPB SCH (14:30)
[2023-05-06 16:51] LABS: ARTERIAL BLD GAS O2 SATURATION 94.6 % (95-98); ARTERIAL BLOOD GAS PO2 73.7 mmHg (80-100); ARTERIAL BLOOD GAS pH 7.389 (7.350-7.450)
[2023-05-06 16:52] LABS: ALLENS TEST POSITIVE
[2023-05-07] MEDS: LEVALBUTEROL HCL 0.63 MG/3 ML VIAL.NEB. IH SCH ×6 (00:50→20:12)
[2023-05-07] MEDS: GABAPENTIN 400 MG CAPSULE PO SCH ×3 (05:11→21:05)
[2023-05-07] MEDS: FUROSEMIDE 40 MG/4 ML INJECTABLE VIAL IVPUSH SCH ×2 (05:11→14:43)
[2023-05-07] MEDS: CARBIDOPA/LEVODOPA 25/100 TABLET (FP) PO SCH ×3 (05:11→21:05)
[2023-05-07 07:34] LABS: BASO % 0.2 % (0-2.0); HEMATOCRIT 38.2 % (32.4-45.2); HEMOGLOBIN 12.8 GM/dL (10.7-15.3); LYMPH % 12.4 % (8-40); MCH 31.6 pg (25.7-33.7); MCHC 33.6 g/dl (32.0-36.0); MEAN CELL VOLUME 94.1 fl (80-96); MEAN PLT VOLUME 8.7 fl (7.5-11.1); MONO % 9.2 % (3.8-10.2); NEUT % 78.2 % (42.8-82.8); PLATELET COUNT 158 10^3/uL (134-434); RBC 4.06 M/mm3 (3.60-5.2); RDW 13.6 % (11.6-15.6); WHITE BLOOD COUNT 8.8 K/mm3 (4.0-10.0)
[2023-05-07 08:00] LABS: POTASSIUM 3.8 mmol/L (3.5-5.1)
[2023-05-07 08:02] LABS: CALCIUM 8.3 mg/dL (8.5-10.1)
[2023-05-07 08:03] LABS: ALBUMIN 3.2 g/dl (3.4-5.0); BLOOD UREA NITROGEN 21.6 mg/dL (7-18); MAGNESIUM 2.3 mg/dL (1.8-2.4)
[2023-05-07 08:05] LABS: PHOSPHOROUS 3.2 mg/dL (2.5-4.9)
[2023-05-07 08:06] LABS: CREATININE 0.8 mg/dL (0.55-1.3)
[2023-05-07 08:07] LABS: BILIRUBIN,TOTAL 1.1 mg/dL (0.2-1); TOT PROT 6.8 g/dl (6.4-8.2)
[2023-05-07] MEDS: AZITHROMYCIN IVPB 250 MG in DEXTROSE 5%-WATER - 250 ML IVPB SCH (09:25)
[2023-05-07] MEDS: APIXABAN 5 MG TABLET PO SCH ×2 (09:25→21:05)
[2023-05-07] MEDS: CEFTRIAXONE 1 GM in DEXTROSE 5%-WATER - 50 ML IVPB SCH (09:25)
[2023-05-07] MEDS: PANTOPRAZOLE SODIUM 40 MG VIAL IVPUSH SCH (09:25)
[2023-05-07] MEDS: methylPREDNISolone NA SUCC 40 MG/1 ML VIAL IVPB SCH (09:25)
[2023-05-07] MEDS: BUDESONIDE/FORMETEROL FUMARATE 80/4.5 mcg INHALER IH SCH ×2 (09:26→21:05)
[2023-05-08] MEDS: LEVALBUTEROL HCL 0.63 MG/3 ML VIAL.NEB. IH SCH ×6 (00:33→21:29)
[2023-05-08] MEDS: FUROSEMIDE 40 MG/4 ML INJECTABLE VIAL IVPUSH SCH ×2 (05:48→13:43)
[2023-05-08] MEDS: GABAPENTIN 400 MG CAPSULE PO SCH ×3 (05:48→22:04)
[2023-05-08] MEDS: CARBIDOPA/LEVODOPA 25/100 TABLET (FP) PO SCH ×3 (05:49→22:04)
[2023-05-08 08:08] LABS: HEMATOCRIT 41.5 % (32.4-45.2); HEMOGLOBIN 13.8 GM/dL (10.7-15.3); MCH 31.4 pg (25.7-33.7); MCHC 33.2 g/dl (32.0-36.0); MEAN CELL VOLUME 94.4 fl (80-96); MEAN PLT VOLUME 8.7 fl (7.5-11.1); PLATELET COUNT 157 10^3/uL (134-434); RBC 4.39 M/mm3 (3.60-5.2); WHITE BLOOD COUNT 9.2 K/mm3 (4.0-10.0)
[2023-05-08 08:26] LABS: POTASSIUM 3.6 mmol/L (3.5-5.1)
[2023-05-08 08:34] LABS: ALBUMIN 3.4 g/dl (3.4-5.0); CALCIUM 8.2 mg/dL (8.5-10.1)
[2023-05-08 08:35] LABS: BLOOD UREA NITROGEN 22.2 mg/dL (7-18)
[2023-05-08 08:37] LABS: CREATININE 0.7 mg/dL (0.55-1.3)
[2023-05-08 08:39] LABS: BILIRUBIN,TOTAL 0.9 mg/dL (0.2-1); TOT PROT 7.1 g/dl (6.4-8.2)
[2023-05-08] MEDS: PANTOPRAZOLE SODIUM 40 MG VIAL IVPUSH SCH (09:28)
[2023-05-08] MEDS: methylPREDNISolone NA SUCC 40 MG/1 ML VIAL IVPB SCH (09:28)
[2023-05-08] MEDS: CEFTRIAXONE 1 GM in DEXTROSE 5%-WATER - 50 ML IVPB SCH (09:28)
[2023-05-08] MEDS: APIXABAN 5 MG TABLET PO SCH ×2 (09:29→22:04)
[2023-05-08] MEDS: BUDESONIDE/FORMETEROL FUMARATE 80/4.5 mcg INHALER IH SCH ×2 (09:31→22:05)
[2023-05-08] MEDS ORDERED: LIDOCAINE 4% PATCH TP ONE (11:27)
[2023-05-08] MEDS: AZITHROMYCIN IVPB 250 MG in DEXTROSE 5%-WATER - 250 ML IVPB SCH (11:54)
[2023-05-08] MEDS ORDERED: hydrALAZINE HCL 20 MG/ML VIAL IVPUSH ONE (12:00)
[2023-05-08] MEDS ORDERED: POTASSIUM CHLORIDE ORAL LIQUID 20 MEQ/15 ML PO SCH (17:45)
[2023-05-08] MEDS: LOSARTAN POTASSIUM 50 MG TABLET PO SCH (19:11)
[2023-05-08] MEDS: POTASSIUM CHLORIDE ORAL LIQUID 20 MEQ/15 ML PO ONE ×2 (19:11→20:04)
[2023-05-08] MEDS ORDERED: LIDOCAINE PATCH REMOVAL MC ONE (22:00)
[2023-05-08] MEDS: POLYETHYLENE GLYCOL (HEALTHYLAX) 3350 17 GM PACKET PO SCH (22:04)
[2023-05-08] MEDS: SENNOSIDES 8.8 MG/5 ML SYRUP PO SCH (22:04)
[2023-05-09] MEDS: LEVALBUTEROL HCL 0.63 MG/3 ML VIAL.NEB. IH SCH ×6 (00:46→20:05)
[2023-05-09] MEDS: GABAPENTIN 400 MG CAPSULE PO SCH ×3 (05:12→21:47)
[2023-05-09] MEDS: FUROSEMIDE 40 MG/4 ML INJECTABLE VIAL IVPUSH SCH (05:12)
[2023-05-09] MEDS: CARBIDOPA/LEVODOPA 25/100 TABLET (FP) PO SCH ×3 (05:12→21:54)
[2023-05-09 06:49] LABS: HEMATOCRIT 41.7 % (32.4-45.2); HEMOGLOBIN 13.8 GM/dL (10.7-15.3); MCH 31.5 pg (25.7-33.7); MCHC 33.2 g/dl (32.0-36.0); MEAN CELL VOLUME 94.9 fl (80-96); MEAN PLT VOLUME 8.9 fl (7.5-11.1); PLATELET COUNT 155 10^3/uL (134-434); RBC 4.39 M/mm3 (3.60-5.2); RDW 13.7 % (11.6-15.6); WHITE BLOOD COUNT 8.8 K/mm3 (4.0-10.0)
[2023-05-09 07:07] LABS: POTASSIUM 4.1 mmol/L (3.5-5.1)
[2023-05-09 07:09] LABS: CALCIUM 8.1 mg/dL (8.5-10.1)
[2023-05-09 07:10] LABS: BLOOD UREA NITROGEN 23.5 mg/dL (7-18)
[2023-05-09 07:13] LABS: CREATININE 0.7 mg/dL (0.55-1.3)
[2023-05-09] MEDS: POLYETHYLENE GLYCOL (HEALTHYLAX) 3350 17 GM PACKET PO SCH (09:17)
[2023-05-09] MEDS: methylPREDNISolone NA SUCC 40 MG/1 ML VIAL IVPB SCH (09:17)
[2023-05-09] MEDS: CEFTRIAXONE 1 GM in DEXTROSE 5%-WATER - 50 ML IVPB SCH (09:17)
[2023-05-09] MEDS: PANTOPRAZOLE SODIUM 40 MG VIAL IVPUSH SCH (09:17)
[2023-05-09] MEDS: LOSARTAN POTASSIUM 50 MG TABLET PO SCH (09:17)
[2023-05-09] MEDS: APIXABAN 5 MG TABLET PO SCH ×2 (09:17→21:45)
[2023-05-09] MEDS: BUDESONIDE/FORMETEROL FUMARATE 80/4.5 mcg INHALER IH SCH ×2 (09:24→21:54)
[2023-05-09] MEDS: LIDOCAINE 4% PATCH TP SCH (17:46)
[2023-05-09] MEDS: FUROSEMIDE 40 MG TABLET (FP) PO SCH (21:46)
[2023-05-09] MEDS: SENNOSIDES 8.8 MG/5 ML SYRUP PO SCH (21:47)
[2023-05-09] MEDS: LIDOCAINE PATCH REMOVAL MC SCH (21:47)
[2023-05-09] MEDS ORDERED: LIDOCAINE PATCH REMOVAL MC SCH (22:00)
[2023-05-09] MEDS ORDERED: SPIRONOLACTONE 25 MG TABLET PO ONE (22:43)
[2023-05-10] MEDS: LEVALBUTEROL HCL 0.63 MG/3 ML VIAL.NEB. IH SCH ×6 (00:05→20:56)
[2023-05-10] MEDS: CARBIDOPA/LEVODOPA 25/100 TABLET (FP) PO SCH ×3 (06:18→21:34)
[2023-05-10] MEDS: GABAPENTIN 400 MG CAPSULE PO SCH ×3 (06:18→21:33)
[2023-05-10] MEDS: LIDOCAINE 4% PATCH TP SCH (09:57)
[2023-05-10] MEDS: POLYETHYLENE GLYCOL (HEALTHYLAX) 3350 17 GM PACKET PO SCH (09:57)
[2023-05-10] MEDS: CEFTRIAXONE 1 GM in DEXTROSE 5%-WATER - 50 ML IVPB SCH (09:58)
[2023-05-10] MEDS: BUDESONIDE/FORMETEROL FUMARATE 80/4.5 mcg INHALER IH SCH ×2 (09:58→21:34)
[2023-05-10] MEDS: FUROSEMIDE 40 MG TABLET (FP) PO SCH ×2 (09:58→21:33)
[2023-05-10] MEDS: APIXABAN 5 MG TABLET PO SCH ×2 (09:59→21:31)
[2023-05-10] MEDS: SACUBITRIL/VALSARTAN 24 MG-26 MG TABLET PO SCH ×2 (09:59→21:32)
[2023-05-10] MEDS ORDERED: predniSONE 20 MG TABLET (UD) PO SCH (10:00)
[2023-05-10] MEDS ORDERED: PANTOPRAZOLE 40 MG TABLET PO SCH (10:00)
[2023-05-10] MEDS ORDERED: SPIRONOLACTONE 25 MG TABLET PO SCH (10:00)
[2023-05-10 13:06] LABS: BASO % 0.5 % (0-2.0); HEMATOCRIT 46.6 % (32.4-45.2); HEMOGLOBIN 15.6 GM/dL (10.7-15.3); LYMPH % 12.1 % (8-40); MCH 31.3 pg (25.7-33.7); MCHC 33.5 g/dl (32.0-36.0); MEAN CELL VOLUME 93.4 fl (80-96); MEAN PLT VOLUME 8.6 fl (7.5-11.1); NEUT % 77.4 % (42.8-82.8); PLATELET COUNT 198 10^3/uL (134-434); RDW 13.9 % (11.6-15.6); WHITE BLOOD COUNT 10.1 K/mm3 (4.0-10.0)
[2023-05-10 14:26] LABS: POTASSIUM 3.7 mmol/L (3.5-5.1)
[2023-05-10 14:29] LABS: CALCIUM 9.1 mg/dL (8.5-10.1)
[2023-05-10 14:30] LABS: ALBUMIN 3.4 g/dl (3.4-5.0); BLOOD UREA NITROGEN 28.4 mg/dL (7-18)
[2023-05-10 14:34] LABS: BILIRUBIN,TOTAL 0.9 mg/dL (0.2-1); TOT PROT 7.4 g/dl (6.4-8.2)
[2023-05-10 14:37] LABS: CREATININE 0.8 mg/dL (0.55-1.3)
[2023-05-10 15:20] VITALS: RESP 16
[2023-05-10 21:31] VITALS: TEMP 97.9
[2023-05-10] MEDS: SENNOSIDES 8.8 MG/5 ML SYRUP PO SCH (21:33)
[2023-05-10] MEDS: LIDOCAINE PATCH REMOVAL MC SCH (21:33)
[2023-05-10 23:18] VITALS: BP 120/98; PULSE 103
== END 2023-05-10 23:22 | disposition home health service (06) | DRG 291 ==
LOC: JER 18:03 → JERBED 19:02 → J2W 05-06 05:00
PROVIDERS: ADMIT Internal Medicine; ATTEND Internal Medicine
DX: I11.0 Hypertensive heart disease with heart failure (principal); I50.33 Acute on chronic diastolic (congestive) heart failure; J96.01 Acute respiratory failure with hypoxia; J96.02 Acute respiratory failure with hypercapnia; J18.9 Pneumonia, unspecified organism; J44.0 Chronic obstructive pulmonary disease with (acute) lower respiratory infection; N17.9 Acute kidney failure, unspecified; E87.1 Hypo-osmolality and hyponatremia; J98.11 Atelectasis; E87.29 Other acidosis; C34.90 Malignant neoplasm of unspecified part of unspecified bronchus or lung; E03.9 Hypothyroidism, unspecified; I48.91 Unspecified atrial fibrillation; J84.10 Pulmonary fibrosis, unspecified; E78.5 Hyperlipidemia, unspecified; E78.00 Pure hypercholesterolemia, unspecified; K21.9 Gastro-esophageal reflux disease without esophagitis; G20.A1 Parkinson's disease without dyskinesia, without mention of fluctuations; G62.9 Polyneuropathy, unspecified; R74.01 Elevation of levels of liver transaminase levels
CPT/HCPCS: 0241U-QW; 36415; 36600; 71045-TC-FY; 71046-TC-FY; 71275-TC; 76705-TC; 80048; 80053; 80061; 81003; 82803; 83036; 83605; 83690; 83735; 83880; 84100; 84443; 84484; 85025; 85027; 85610; 85730; 86850; 86900; 86901; 87040; 87070; 87086; 87205; 87635; 87899; 93005; 93010; 93306-TC; 94010; 94660; 94761; 97116-GP; 97162-GP; 99285-25; Q9967

== ENCOUNTER 2023-05-11 10:57 | Observation (INO) | payer OTHER ==
[2023-05-11 11:23] VITALS: BMI 26.4
[2023-05-11 12:48] LABS: BASO % 0.3 % (0-2.0); HEMATOCRIT 49.2 % (32.4-45.2); LYMPH % 17.9 % (8-40); MCH 30.8 pg (25.7-33.7); MCHC 32.5 g/dl (32.0-36.0); MEAN CELL VOLUME 94.8 fl (80-96); MEAN PLT VOLUME 8.2 fl (7.5-11.1); MONO % 10.1 % (3.8-10.2); NEUT % 69.7 % (42.8-82.8); PLATELET COUNT 202 10^3/uL (134-434); RBC 5.19 M/mm3 (3.60-5.2); RDW 13.9 % (11.6-15.6); WHITE BLOOD COUNT 11.2 K/mm3 (4.0-10.0)
[2023-05-11 12:56] LABS: INR 1.56 (0.83-1.09)
[2023-05-11 13:15] LABS: POTASSIUM 4.8 mmol/L (3.5-5.1)
[2023-05-11 13:18] LABS: CALCIUM 9.1 mg/dL (8.5-10.1)
[2023-05-11 13:19] LABS: ALBUMIN 3.6 g/dl (3.4-5.0); BLOOD UREA NITROGEN 36.4 mg/dL (7-18)
[2023-05-11 13:23] LABS: BILIRUBIN,TOTAL 1.1 mg/dL (0.2-1); TOT PROT 7.5 g/dl (6.4-8.2)
[2023-05-11] MEDS ORDERED: SODIUM CHLORIDE 0.9% 500 ML INFUS.BAG IV ONE (13:58)
[2023-05-11] MEDS ORDERED: ASPIRIN 81 MG CHEWABLE TABLETS PO ONE (14:03)
[2023-05-11] MEDS ORDERED: ASPIRIN 81 MG CHEWABLE TABLETS ONE (15:17)
[2023-05-11 17:05] LABS: PH,URINE 7.5 (5.0-8.0); URINE APPEARANCE CLEAR; URINE BILIRUBIN NEGATIVE (NEGATIVE); URINE COLOR YELLOW; URINE GLUCOSE (UA) NEGATIVE (NEGATIVE); URINE KETONE NEGATIVE (NEGATIVE); URINE LEUK ESTERASE NEGATIVE (NEGATIVE); URINE NITRITE NEGATIVE (NEGATIVE); URINE PROTEIN NEGATIVE (NEGATIVE); URINE UROBILINOGEN 0.2 mg/dL (0.2-1.0)
[2023-05-11] MEDS: SACUBITRIL/VALSARTAN 24 MG-26 MG TABLET PO SCH (21:52)
[2023-05-11] MEDS: GABAPENTIN 400 MG CAPSULE PO SCH (21:52)
[2023-05-11] MEDS: CARBIDOPA/LEVODOPA 25/100 TABLET (FP) PO SCH (21:52)
[2023-05-11] MEDS: APIXABAN 5 MG TABLET PO SCH (21:53)
[2023-05-11] MEDS: ALBUTEROL SO4 HFA INHALER IH SCH (21:53)
[2023-05-12] MEDS: ALBUTEROL SO4 HFA INHALER IH SCH ×5 (01:01→17:46)
[2023-05-12] MEDS: CARBIDOPA/LEVODOPA 25/100 TABLET (FP) PO SCH ×3 (06:20→22:22)
[2023-05-12] MEDS: GABAPENTIN 400 MG CAPSULE PO SCH ×2 (06:20→13:42)
[2023-05-12 08:18] LABS: BASO % 0.2 % (0-2.0); EOS % 4.4 % (0-4.5); HEMATOCRIT 46.3 % (32.4-45.2); HEMOGLOBIN 15.3 GM/dL (10.7-15.3); LYMPH % 30.9 % (8-40); MCH 31.3 pg (25.7-33.7); MCHC 33.1 g/dl (32.0-36.0); MEAN CELL VOLUME 94.4 fl (80-96); MEAN PLT VOLUME 8.7 fl (7.5-11.1); MONO % 10.3 % (3.8-10.2); NEUT % 54.2 % (42.8-82.8); PLATELET COUNT 185 10^3/uL (134-434); RBC 4.91 M/mm3 (3.60-5.2); RDW 14.1 % (11.6-15.6); WHITE BLOOD COUNT 7.9 K/mm3 (4.0-10.0)
[2023-05-12 08:25] LABS: POTASSIUM 3.8 mmol/L (3.5-5.1)
[2023-05-12 08:29] LABS: ALBUMIN 2.9 g/dl (3.4-5.0); CALCIUM 8.1 mg/dL (8.5-10.1)
[2023-05-12 08:30] LABS: BLOOD UREA NITROGEN 29.8 mg/dL (7-18); MAGNESIUM 2.3 mg/dL (1.8-2.4)
[2023-05-12 08:32] LABS: CREATININE 0.8 mg/dL (0.55-1.3)
[2023-05-12 08:34] LABS: BILIRUBIN,TOTAL 1.1 mg/dL (0.2-1); TOT PROT 6.1 g/dl (6.4-8.2)
[2023-05-12] MEDS: APIXABAN 5 MG TABLET PO SCH ×2 (09:46→22:22)
[2023-05-12] MEDS: PANTOPRAZOLE 40 MG TABLET PO SCH (09:46)
[2023-05-12] MEDS: predniSONE 10 MG TABLET (UD) PO SCH (09:46)
[2023-05-12] MEDS ORDERED: SODIUM CHLORIDE 500 ML IV ONE ×2 (10:00→15:00)
[2023-05-12] MEDS ORDERED: SPIRONOLACTONE 25 MG TABLET PO SCH (10:00)
[2023-05-12] MEDS: SACUBITRIL/VALSARTAN 24 MG-26 MG TABLET PO SCH ×2 (10:43→22:22)
[2023-05-12] MEDS: SPIRONOLACTONE 25 MG TABLET PO SCH (13:19)
[2023-05-12] MEDS: GABAPENTIN 100 MG CAPSULE PO SCH (22:21)
[2023-05-13] MEDS: CARBIDOPA/LEVODOPA 25/100 TABLET (FP) PO SCH ×3 (06:40→21:34)
[2023-05-13] MEDS: GABAPENTIN 100 MG CAPSULE PO SCH ×3 (06:40→21:34)
[2023-05-13] MEDS: ALBUTEROL SO4 HFA INHALER IH SCH ×3 (09:30→17:53)
[2023-05-13] MEDS: SPIRONOLACTONE 25 MG TABLET PO SCH (09:43)
[2023-05-13] MEDS: SACUBITRIL/VALSARTAN 24 MG-26 MG TABLET PO SCH (09:43)
[2023-05-13] MEDS: APIXABAN 5 MG TABLET PO SCH ×2 (09:44→21:34)
[2023-05-13] MEDS: PANTOPRAZOLE 40 MG TABLET PO SCH (09:44)
[2023-05-13] MEDS: predniSONE 10 MG TABLET (UD) PO SCH (09:44)
[2023-05-14] MEDS: GABAPENTIN 100 MG CAPSULE PO SCH ×3 (06:35→21:09)
[2023-05-14] MEDS: CARBIDOPA/LEVODOPA 25/100 TABLET (FP) PO SCH ×3 (06:36→21:09)
[2023-05-14 06:41] LABS: BASO % 0.6 % (0-2.0); HEMATOCRIT 41.4 % (32.4-45.2); HEMOGLOBIN 13.7 GM/dL (10.7-15.3); LYMPH % 28.5 % (8-40); MCH 31.2 pg (25.7-33.7); MCHC 33.1 g/dl (32.0-36.0); MEAN CELL VOLUME 94.3 fl (80-96); MEAN PLT VOLUME 7.7 fl (7.5-11.1); NEUT % 59.9 % (42.8-82.8); PLATELET COUNT 175 10^3/uL (134-434); RBC 4.38 M/mm3 (3.60-5.2); RDW 13.6 % (11.6-15.6)
[2023-05-14 07:01] LABS: POTASSIUM 4.2 mmol/L (3.5-5.1)
[2023-05-14 07:09] LABS: ALBUMIN 2.6 g/dl (3.4-5.0); BLOOD UREA NITROGEN 28.6 mg/dL (7-18); CALCIUM 8.5 mg/dL (8.5-10.1)
[2023-05-14 07:12] LABS: CREATININE 0.8 mg/dL (0.55-1.3)
[2023-05-14 07:14] LABS: TOT PROT 5.3 g/dl (6.4-8.2)
[2023-05-14] MEDS: FUROSEMIDE 20 MG TABLET (FP) PO SCH ×3 (07:40→08:33)
[2023-05-14] MEDS: ALBUTEROL SO4 HFA INHALER IH SCH ×8 (07:49→21:08)
[2023-05-14] MEDS: PANTOPRAZOLE 40 MG TABLET PO SCH (09:36)
[2023-05-14] MEDS: APIXABAN 5 MG TABLET PO SCH ×2 (09:37→21:09)
[2023-05-14] MEDS ORDERED: PANTOPRAZOLE SODIUM 40 MG VIAL IVPUSH ONE (21:11)
[2023-05-15] MEDS: ALBUTEROL SO4 HFA INHALER IH SCH ×4 (00:12→12:28)
[2023-05-15 05:53] VITALS: RESP 18
[2023-05-15] MEDS: GABAPENTIN 100 MG CAPSULE PO SCH ×2 (06:09→15:04)
[2023-05-15] MEDS: CARBIDOPA/LEVODOPA 25/100 TABLET (FP) PO SCH ×2 (06:09→15:04)
[2023-05-15 07:31] LABS: BASO % 0.6 % (0-2.0); HEMATOCRIT 40.8 % (32.4-45.2); HEMOGLOBIN 13.8 GM/dL (10.7-15.3); LYMPH % 29.3 % (8-40); MCH 31.9 pg (25.7-33.7); MCHC 33.8 g/dl (32.0-36.0); MEAN CELL VOLUME 94.5 fl (80-96); MEAN PLT VOLUME 7.8 fl (7.5-11.1); MONO % 9.4 % (3.8-10.2); NEUT % 56.7 % (42.8-82.8); PLATELET COUNT 174 10^3/uL (134-434); RBC 4.31 M/mm3 (3.60-5.2); RDW 13.7 % (11.6-15.6); WHITE BLOOD COUNT 8.2 K/mm3 (4.0-10.0)
[2023-05-15 07:46] LABS: POTASSIUM 4.9 mmol/L (3.5-5.1)
[2023-05-15 07:51] LABS: CALCIUM 8.3 mg/dL (8.5-10.1)
[2023-05-15 07:54] LABS: BLOOD UREA NITROGEN 22.8 mg/dL (7-18)
[2023-05-15 07:57] LABS: CREATININE 0.8 mg/dL (0.55-1.3)
[2023-05-15 09:01] VITALS: BP 134/83; PULSE 84; TEMP 98.5
[2023-05-15] MEDS: SACUBITRIL/VALSARTAN 24 MG-26 MG TABLET PO SCH (09:17)
[2023-05-15] MEDS: PANTOPRAZOLE 40 MG TABLET PO SCH (09:17)
[2023-05-15] MEDS: APIXABAN 5 MG TABLET PO SCH (09:18)
== END 2023-05-15 15:40 | disposition home or self-care (01) ==
LOC: JER 10:57 → JERBED 16:30 → J4W 19:58
PROVIDERS: ADMIT Internal Medicine; ATTEND Family Medicine
PROC: 3E0337Z Introduction of Electrolytic and Water Balance Substance into Peripheral Vein, Percutaneous Approach (ICD-10-PCS; principal; 2023-05-11)
DX: R55 Syncope and collapse (principal); G20.A1 Parkinson's disease without dyskinesia, without mention of fluctuations; J44.9 Chronic obstructive pulmonary disease, unspecified; C34.90 Malignant neoplasm of unspecified part of unspecified bronchus or lung; I48.0 Paroxysmal atrial fibrillation; R77.8 Other specified abnormalities of plasma proteins; I50.9 Heart failure, unspecified; E78.5 Hyperlipidemia, unspecified; E87.1 Hypo-osmolality and hyponatremia; W18.39XA Other fall on same level, initial encounter; Y93.89 Activity, other specified; Y92.090 Kitchen in other non-institutional residence as the place of occurrence of the external cause; F41.9 Anxiety disorder, unspecified; Z90.10 Acquired absence of unspecified breast and nipple; M54.9 Dorsalgia, unspecified; Z79.01 Long term (current) use of anticoagulants; J84.10 Pulmonary fibrosis, unspecified; Z88.8 Allergy status to other drugs, medicaments and biological substances
CPT/HCPCS: 0241U-QW; 36415; 70450-TC; 71045-TC-FY; 73502-TC-RT-FY; 73552-TC-RT-FY; 73560-TC-RT-FY; 80048; 80053; 81003; 82962; 83735; 84443; 84484; 85025; 85610; 85730; 87086; 93005; 93010; 93880-TC; 96360; 96361; 97116-GP; 97162-GP; 99285-25; G0378